=== PATIENT | female | born 1990 | race Caucasian/White ===

== ENCOUNTER 2017-02-21 11:27 | Emergency (ER) | payer MEDICAID, MEDICARE ==
[2017-02-21] MEDS ORDERED: Sulfameth/Trimethoprim DS 800-160mg TAB ONE ×2 (12:32→12:35)
[2017-02-21] MEDS ORDERED: Adacel (T-DAP) 0.5 ML VIAL ONE (12:32)
[2017-02-21] MEDS ORDERED: Bacitracin Zinc 1 Packet ONE (12:32)
--- NOTE | 2017-02-21 18:36 | RAD ---
RIGHT FIFTH FINGER 02/21/17 No fracture or oblique foreign body was seen. The joints appear normal. IMPRESSION: No acute findings. POS: HOME
== END 2017-02-21 12:55 | disposition home or self-care (01) ==
LOC: BURERS 11:27
DX: L03.011 Cellulitis of right finger (principal); L98.499 Non-pressure chronic ulcer of skin of other sites with unspecified severity; E10.9 Type 1 diabetes mellitus without complications; F41.9 Anxiety disorder, unspecified; F17.210 Nicotine dependence, cigarettes, uncomplicated; X50.1XXA Overexertion from prolonged static or awkward postures, initial encounter
CPT/HCPCS: 26010; 90471; 90715